=== PATIENT | female | born 1955 | race Caucasian/White ===

== ENCOUNTER 2018-01-16 13:19 | Emergency (ER) | payer OTHER ==
[~2018-01-16] VITALS: Ht 152.4 cm; Wt 80.2 kg
[~2018-01-16 13:19] MED LIST: CITA20 PO; LANTUSP SQ; LISI20 PO; LORA0.5T PO; MICOPOW31 TOP; NOVOLOGP2 SQ; TRAZ50TA4 PO; VITA200017 PO; WELL150T PO
[2018-01-16 13:21] VITALS: BP 153/76; PULSE 110; RESP 16; TEMP 98.5; O2SAT 94
--- NOTE | 2018-01-16 13:33 | PD ---
HPI Chief Complaint: Skin Problem Time Seen by Provider: 13:27 Travel History International Travel<30 days: No Contact w/Intl Traveler<30days: No Traveled to known affect area: No History of Present Illness HPI 62-year-old female presents to emergency department complaining of a sore on her right lateral calf that she noticed yesterday, with worsening today. Denies fever, vomiting. Denies paresthesias, loss of sensation, decreased range of motion, decreased strength to the affected extremity. Denies history of MRSA. Rates pain 8/10. Says it is not itchy. No known aggravating or relieving factors. Has not taken any medication or trying treatments to alleviate her symptoms. Unknown tetanus status. No primary care provider. Allergies as listed on the chart. History of hypertension, DM, liver disease, mental illness. Has no other medical complaints. No other modifying factors or associated signs and symptoms. PFSH Past Medical History Autoimmune Disease: No Blood Disorders: No Anxiety: Yes Depression: Yes Heart Rhythm Problems: Yes Cancer: No Cardiac Catheterization: No Cardiovascular Problems: Yes High Cholesterol: No Chemotherapy: No Chest Pain: No Congestive Heart Failure: No Cerebrovascular Accident: No Diabetes: Yes Diminished Hearing: No Endocrine: Yes GERD: Yes Genitourinary: No Headaches: Yes Hiatal Hernia: No Hypertension: Yes Immune Disorder: No Musculoskeletal: No Neurologic: Yes Psychiatric: Yes Reproductive: No Respiratory: No Migraines: No Myocardial Infarction: No Pneumonia: Yes Radiation Therapy: No Seizures: No Ulcer: Yes ?: Not Menopausal: Yes : 5 Para: 3 Miscarriage: 1 : 1 Tubal Ligation: Yes Past Surgical History Abdominal Surgery: Yes AICD: No Arteriovenous Shunt: No Cardiac Surgery: No Section: Yes Cholecystectomy: Yes Coronary Artery Bypass Graft: No Ear Surgery: No Endocrine Surgery: No Eye Surgery: Yes (CATARACTS BILAT) Genitourinary Surgery: No Gynecologic Surgery: Yes ( X2) Insulin Pump: No Joint Replacement: No Oral Surgery: No Pacemaker: No Thoracic Surgery: No Other Surgery: Yes Social History Alcohol Use: No (OCCASIONAL) Tobacco Use: No Substance Use: No Allergies-Medications (Allergen,Severity, Reaction): Coded Allergies: cat dander (Unverified Allergy, Severe, Shortness of Breath, 01/16/18) dog dander (Unverified Allergy, Severe, Shortness of Breath, 01/16/18) hydromorphone (Unverified Allergy, Severe, Hallucinations, 01/16/18) propoxyphene (Unverified Allergy, Severe, VOMITING, 01/16/18) Reported Meds & Prescriptions Reported Meds & Active Scripts Active Bactrim DS (Sulfamethoxazole-Trimethoprim) 800-160 Mg Tab 1 Tab PO BID 10 Days Reported Bupropion HCl 100 Mg Tab 100 Mg PO BID Lorazepam 0.5 Mg Tab 0.5 Mg PO Q6H PRN Review of Systems Except as stated in HPI: all other systems reviewed are Neg Physical Exam Narrative GENERAL: Well-nourished, well-developed feet patient, in no acute distress; afebrile, nontoxic-appearing SKIN: Warm and dry. Right lower lateral leg with 1.5 x 2.5 cm blister type area with minimal surrounding erythema. No lymphangitis. Right lower extremity is supple nontender with 2+ pedal pulse and sensory intact. HEAD: Atraumatic. Normocephalic. EYES: Pupils equal and round. No scleral icterus. No injection or drainage. ENT: Mucosa pink and moist. Airway patent. NECK: Trachea midline. CARDIOVASCULAR: Regular rate. RESPIRATORY: No accessory muscle use. GASTROINTESTINAL: Obese. MUSCULOSKELETAL: No obvious deformities. No clubbing. No cyanosis. No edema. NEUROLOGICAL: Awake and alert. Oriented 3. No obvious cranial nerve deficits. Motor grossly within normal limits. Normal speech. PSYCHIATRIC: Appropriate mood and affect; insight and judgment normal. Data Data Last Documented VS Vital Signs Date Time Temp Pulse Resp B/P (MAP) Pulse Ox O2 Delivery O2 Flow Rate FiO2 01/16/18 13:33 18 01/16/18 13:21 98.5 110 153/76 (101) 94 Orders Orders Wound Culture And Gram Stain (01/16/18 13:33) Tetanus/Diphtheria Tox Adult (Tetanus/Di (01/16/18 13:45) Ed Discharge Order (01/16/18 13:33) MDM Medical Decision Making Medical Screen Exam Complete: Yes Emergency Medical Condition: Yes Medical Record Reviewed: Yes Differential Diagnosis Infected wound, cellulitis, infected insect bite Narrative Course 62-year-old female with infected wound and cellulitis of right lower leg. Patient is afebrile and nontoxic-appearing. Findings may be consistent with infected insect bite/sting. Tetanus updated in the ER. Blister drained. Wound culture pending. See my procedure note for drainage of the blister. Bactrim prescribed for home. Instructed patient to follow up with primary care provider. Patient verbalizes understanding and agreement with treatment plan. Patient is medically cleared and stable for discharge. Discussed reasons to return to the emergency department. Patient agrees with treatment plan. The patients vital signs are stable and the patient is stable for outpatient follow- up and treatment. Patient discharged home, stable and in no acute distress. Procedures Procedure Narrative INCISION AND DRAINAGE OF blister: The area was prepped with alcohol pad. An 18- gauge needle was used to puncture the base of the blister. Cultures were obtained. The blister was drained. Patient tolerated well. Sterile dressing applied. Diagnosis Primary Impression: Infected wound Additional Impression: Cellulitis of leg, right Referrals: Primary Care Physician Patient Instructions: Cellulitis (ED), General Instructions, Insect Bite or Sting (ED), Wound Infection (ED) Additional Instructions: Complete full course of antibiotics Warm compresses to the affected area Keep area clean and dry Ibuprofen or Tylenol as directed and as needed for pain and inflammation Topical antibiotic ointment, such as Neosporin or bacitracin, as directed and as needed for wound care Follow-up with primary care provider Return to emergency department immediately with worsening of symptoms Med/Other Pt SpecificInfo: Prescription(s) given Scripts Sulfamethoxazole-Trimethoprim (Bactrim DS) 800-160 Mg Tab 1 TAB PO BID for Infection for 10 Days, #20 TAB 0 Refills Prov: Shantell Downing 01/16/18 Disposition: 01 DISCHARGE HOME Condition: Stable Shantell Downing Jan 16, 2018 13:33
[2018-01-16] MEDS ORDERED: BUPR100T4 PO (13:40)
[2018-01-16] MEDS ORDERED: LORA0.5T PO (13:40)
[2018-01-16] MEDS ORDERED: BACT800T5 PO (13:42)
[2018-01-16] MEDS ORDERED: TETANUS/DIPHTHERIA TOXOID ADULT 0.5 ML VIAL IM ONE (13:45)
[2018-01-16 13:52] VITALS: PULSE 107; RESP 18; O2SAT 95
== END 2018-01-16 14:09 | disposition home or self-care (01) ==
LOC: PHEFT 13:19
DX: L08.9 Local infection of the skin and subcutaneous tissue, unspecified (principal); L03.115 Cellulitis of right lower limb; B95.1 Streptococcus, group B, as the cause of diseases classified elsewhere; B96.1 Klebsiella pneumoniae [K. pneumoniae] as the cause of diseases classified elsewhere; Z23 Encounter for immunization; I10 Essential (primary) hypertension; E11.9 Type 2 diabetes mellitus without complications; F32.9 Major depressive disorder, single episode, unspecified; Z88.5 Allergy status to narcotic agent; Z79.899 Other long term (current) drug therapy
CPT/HCPCS: 10140; 86403; 87070; 87077; 87186; 90471; 90714